=== PATIENT | female | born 1940 | race Caucasian/White ===

== ENCOUNTER → 2016-09-30 | Outpatient (CLI) | payer MEDICARE ==
[~2016-09-30] MED LIST: ACDPT PO; ACET325T38 PO; AMIT10TA6 PO; AMLO10TA82 PO; CARV25TA30 PO; CHOL10002 PO; CLOP75TA3 PO; CRAN450T4 PO; FEVE380C PO; FIBER; FURO40TA4 PO; LOSA100T8 PO; LOSA25TA2 PO; MTP50T PO; NITR0.4T7 SL; OMEG1CAP PO; SEVE0.8P PO; UBID10CA5 PO
[2016-09-30 09:22] LABS: BASOPHILS % (AUTO) 1 % (0-2); EOSINOPHILS # (AUTO) 0.6 10^3uL; EOSINOPHILS % (AUTO) 8 % (0-4); LYMPHOCYTES # (AUTO) 1.5 X10^3; MEAN CORPUSCULAR HEMOGLOBIN 30.4 PG (26.0-34.0); MEAN CORPUSCULAR VOLUME 96 FL (80-100); MEAN PLATELET VOLUME 9.4 FL (6.0-9.5); MONOCYTES # (AUTO) 0.9 X10^3; MONOCYTES % (AUTO) 13 % (3-11); NEUTROPHILS # (AUTO) 3.9 X10^3; NEUTROPHILS % (AUTO) 56 % (51-67); PLATELET COUNT 199 10^3uL (150-450)
[2016-09-30 09:25] LABS: MEAN CORPUSCULAR HGB CONC 31.6 g/dL (31.0-37.0)
[2016-09-30 09:56] LABS: ANION GAP 15.7 MEQ/L (3-15); PHOSPHORUS 5.5 mg/dL (2.4-4.9)
== END ==
LOC: LAB 09:06
PROVIDERS: ATTEND Internal Medicine Nephrology
DX: N18.5 Chronic kidney disease, stage 5 (principal)
CPT/HCPCS: 36415; 80069; 85025

== ENCOUNTER 2016-10-23 17:42 | Emergency (ER) | payer MEDICARE ==
[~2016-10-23] VITALS: Ht 162.6 cm; Wt 57.0 kg
[2016-10-23 18:51] LABS: MEAN CORPUSCULAR HGB CONC 32.9 g/dL (31.0-37.0); MEAN CORPUSCULAR VOLUME 97 FL (80-100); MEAN PLATELET VOLUME 10.6 FL (6.0-9.5); PLATELET COUNT 173 10^3uL (150-450); WHITE BLOOD COUNT 6.09 10^3uL (4.0-11.0)
[2016-10-23 19:04] LABS: MEAN CORPUSCULAR HEMOGLOBIN 31.8 PG (26.0-34.0)
--- NOTE | 2016-10-23 19:04 | NUR ---
Coban removed. Site continues to bleed slightly. Tegaderm in place. Coban reapplied.
[2016-10-23 19:10] LABS: BAND NEUTROPHILS % 2 % (0-6); SEGMENTED NEUTROPHILS % 53 % (51-67)
[2016-10-23 19:11] LABS: EOSINOPHILS % 7 % (0-4); LYMPHOCYTES # 1.5 #; MONOCYTES # 0.8 #; MONOCYTES % 13 % (3-11); RBC MORPH NORMAL (NORMAL); TOTAL CELLS COUNTED 100
[2016-10-23 19:53] VITALS: BP 183/68
== END 2016-10-23 19:40 | disposition home or self-care (01) ==
LOC: ED 17:44
DX: S51.812A Laceration without foreign body of left forearm, initial encounter (principal); W01.190A Fall on same level from slipping, tripping and stumbling with subsequent striking against furniture, initial encounter; Y93.89 Activity, other specified; Y92.003 Bedroom of unspecified non-institutional (private) residence as the place of occurrence of the external cause
CPT/HCPCS: 36415; 85025; 99282; 99283

== ENCOUNTER → 2016-10-29 | Outpatient (CLI) | payer MEDICARE ==
[2016-10-29 09:52] LABS: MEAN CORPUSCULAR HEMOGLOBIN 31.2 PG (26.0-34.0); MEAN PLATELET VOLUME 10.1 FL (6.0-9.5); WHITE BLOOD COUNT 7.64 10^3uL (4.0-11.0)
[2016-10-29 10:19] LABS: ALBUMIN 4.2 g/dL (3.4-5.0); ANION GAP 19.7 MEQ/L (3-15); PHOSPHORUS 5.7 mg/dL (2.4-4.9)
== END ==
LOC: LAB 09:38
PROVIDERS: ATTEND Internal Medicine
DX: M25.551 Pain in right hip (principal); N18.4 Chronic kidney disease, stage 4 (severe); I70.298 Other atherosclerosis of native arteries of extremities, other extremity
CPT/HCPCS: 36415; 80069; 82306; 83970; 85027

== ENCOUNTER 2016-10-30 20:39 | Emergency (ER) | payer MEDICARE ==
[~2016-10-30] VITALS: Ht 162.6 cm; Wt 57.2 kg
--- NOTE | 2016-10-30 22:19 | NUR ---
CHECKED IF NOSE IS BLEEDING. PT WITH NOSE CLAMP- PT DABBING SMALL AMOUNT OF BLOOD. MADE AWARE.
[2016-10-30] MEDS ORDERED: SILVER NITRATE APPLICATOR 1 EA TOP ONE ×2 (22:35→23:10)
--- NOTE | 2016-10-30 22:40 | NUR ---
RECHECKED BP= 181/74, 72. MADE AWARE.
--- NOTE | 2016-10-30 23:11 | NUR ---
Repeat silver nitrate ordered and applied by MD prior to dc home.
[2016-10-30 23:25] VITALS: BP 156/73
== END 2016-10-30 23:26 | disposition home or self-care (01) ==
LOC: ED 20:40
DX: R04.0 Epistaxis (principal)
CPT/HCPCS: 99283; A9270; 30901; 99282

== ENCOUNTER → 2016-12-04 | Outpatient (CLI) | payer MEDICARE ==
[2016-12-04 09:31] LABS: BASOPHILS % (AUTO) 1 % (0-2); EOSINOPHILS # (AUTO) 0.3 10^3uL; EOSINOPHILS % (AUTO) 6 % (0-4); LYMPHOCYTES # (AUTO) 1.2 X10^3; MEAN CORPUSCULAR HEMOGLOBIN 29.7 PG (26.0-34.0); MEAN CORPUSCULAR VOLUME 95 FL (80-100); MEAN PLATELET VOLUME 9.8 FL (6.0-9.5); MONOCYTES # (AUTO) 0.7 X10^3; MONOCYTES % (AUTO) 13 % (3-11); NEUTROPHILS % (AUTO) 58 % (51-67); PLATELET COUNT 238 10^3uL (150-450); WHITE BLOOD COUNT 5.29 10^3uL (4.0-11.0)
[2016-12-04 10:02] LABS: MEAN CORPUSCULAR HGB CONC 31.3 g/dL (31.0-37.0)
[2016-12-04 10:17] LABS: ALBUMIN 3.7 g/dL (3.4-5.0)
== END ==
LOC: LAB 09:16
PROVIDERS: ATTEND Internal Medicine Nephrology
DX: N18.5 Chronic kidney disease, stage 5 (principal)
CPT/HCPCS: 36415; 80069; 85025

== ENCOUNTER 2016-12-17 10:24 | Emergency (ER) | payer MEDICARE ==
[~2016-12-17] VITALS: Ht 162.6 cm; Wt 56.2 kg
[2016-12-17] MEDS ORDERED: ASPI-586 PO (10:41)
[2016-12-17 11:32] LABS: BASOPHILS % (AUTO) 1 % (0-2); EOSINOPHILS # (AUTO) 0.3 10^3uL; EOSINOPHILS % (AUTO) 6 % (0-4); LYMPHOCYTES # (AUTO) 1.1 X10^3; MEAN CORPUSCULAR HEMOGLOBIN 28.4 PG (26.0-34.0); MEAN CORPUSCULAR VOLUME 93 FL (80-100); MEAN PLATELET VOLUME 9.8 FL (6.0-9.5); MONOCYTES # (AUTO) 0.8 X10^3; MONOCYTES % (AUTO) 14 % (3-11); NEUTROPHILS # (AUTO) 3.2 X10^3; NEUTROPHILS % (AUTO) 59 % (51-67); PLATELET COUNT 197 10^3uL (150-450); WHITE BLOOD COUNT 5.42 10^3uL (4.0-11.0)
[2016-12-17 11:38] LABS: MEAN CORPUSCULAR HGB CONC 30.5 g/dL (31.0-37.0)
--- NOTE | 2016-12-17 11:47 | Diagnostic Imaging Report ---
CLINICAL INDICATION: Patient status post fall with contusion and laceration to back of head. EXAM: Axial CT scan of the brain performed without IV contrast. Sagittal and coronal reformatted images were created. COMPARISON: Head CT without IV contrast dated 01/08/2015. FINDINGS: There is no evidence of acute cerebral infarct, intracranial hemorrhage, or gross mass effect. Again seen focal and patchy areas of low-attenuation white matter changes in both cerebral hemispheres, likely representing chronic small-vessel ischemic disease. There is normal carranza-white matter distinction. The brain parenchymal volume appears appropriate for patient's age. There is no significant midline shift or herniation. There is dense atherosclerotic calcification involving the intradural left vertebral artery and bilateral cavernous carotid arteries. There is no evidence of hydrocephalus. The basal cisterns are unremarkable. There is a small area of extracranial soft tissue swelling in the right posterior aspect of the head. There is no skull fracture seen. Otherwise, the skull, extracranial soft tissue, and orbits are unremarkable. IMPRESSION: 1: There is no evidence of acute intracranial process or intracranial hemorrhage. 2: There is a small area of extracranial swelling in the right posterior aspect of the head. There is no skull fracture. 3: Age-related brain parenchymal changes. Dictated by: Dictated on workstation # [id number]
[2016-12-17] MEDS ORDERED: LIDOCAINE/EPINEPHRINE 1%-1:100,000 (XYLOCAINE) 20ML VIAL TOP ONE (11:55)
[2016-12-17 13:20] VITALS: BP 158/55
== END 2016-12-17 13:22 | disposition home or self-care (01) ==
LOC: ED 10:26
DX: S01.01XA Laceration without foreign body of scalp, initial encounter (principal); W01.198A Fall on same level from slipping, tripping and stumbling with subsequent striking against other object, initial encounter; Y92.009 Unspecified place in unspecified non-institutional (private) residence as the place of occurrence of the external cause
CPT/HCPCS: 12001; 36415; 70450; 85025; 99283

== ENCOUNTER 2016-12-17 13:11 | Outpatient (RCR) | payer MEDICARE ==
[~2016-12-17] VITALS: Ht 162.6 cm; Wt 54.9 kg
[~2016-12-17 13:11] MED LIST changes: +ASPI-586 PO
[2016-12-17] MEDS ORDERED: DARBEPOETIN ALFA SC ONE (13:30)
[2017-01-04] MEDS ORDERED: IRON SUCROSE 200 MG in NORMAL SALINE 150 ML IV ONE (10:10)
[2017-01-06] MEDS ORDERED: IRON SUCROSE 200 MG in NORMAL SALINE 150 ML IV ONE (10:15)
[2017-01-06] MEDS ORDERED: NS FLUSH 3 ML PRN IV (10:15)
[2017-01-06] MEDS: NS FLUSH 10 ML PRN IV (10:42)
[2017-01-08] MEDS ORDERED: IRON SUCROSE 200 MG in NORMAL SALINE 150 ML IV ONE (10:25)
[2017-01-08] MEDS: NS FLUSH 10 ML PRN IV (10:36)
[2017-01-11] MEDS ORDERED: IRON SUCROSE 200 MG in NORMAL SALINE 150 ML IV ONE (10:30)
[2017-01-11] MEDS: NS FLUSH 10 ML PRN IV (11:41)
[2017-01-13] MEDS ORDERED: DARBEPOETIN ALFA SC ONE (10:10)
[2017-01-13] MEDS ORDERED: IRON SUCROSE 200 MG in NORMAL SALINE 150 ML IV ONE (10:10)
[2017-01-13 10:40] VITALS: BP 152/59
== END 2017-02-10 18:22 | disposition home or self-care (01) ==
LOC: EUOP 01-04 09:53
PROVIDERS: ATTEND Internal Medicine Nephrology
DX: N18.5 Chronic kidney disease, stage 5 (principal); D63.8 Anemia in other chronic diseases classified elsewhere
CPT/HCPCS: 36415; 85014; 85018; 96365; 96372; J0881; J1756; J7050; 36000

== ENCOUNTER → 2016-12-28 | Outpatient (CLI) | payer MEDICARE ==
[2016-12-28 09:52] LABS: BASOPHILS % (AUTO) 1 % (0-2); EOSINOPHILS # (AUTO) 0.4 10^3uL; EOSINOPHILS % (AUTO) 6 % (0-4); LYMPHOCYTES # (AUTO) 1.3 X10^3; MEAN CORPUSCULAR HEMOGLOBIN 27.9 PG (26.0-34.0); MEAN CORPUSCULAR VOLUME 92 FL (80-100); MEAN PLATELET VOLUME 8.8 FL (6.0-9.5); MONOCYTES # (AUTO) 0.8 X10^3; MONOCYTES % (AUTO) 13 % (3-11); NEUTROPHILS # (AUTO) 3.6 X10^3; NEUTROPHILS % (AUTO) 59 % (51-67); PLATELET COUNT 275 10^3uL (150-450); WHITE BLOOD COUNT 6.05 10^3uL (4.0-11.0)
[2016-12-28 09:57] LABS: MEAN CORPUSCULAR HGB CONC 30.2 g/dL (31.0-37.0)
[2016-12-28 10:29] LABS: ALBUMIN 3.8 g/dL (3.4-5.0); ANION GAP 18.2 MEQ/L (3-15); CALCULATED IONIZED CALCIUM 4.6 mg/dL (3.8-4.6); TOTAL PROTEIN 6.1 g/dL (6.4-8.5)
[2016-12-28 17:56] LABS: IRON 16 ug/dL (50-170); UNBOUND IRON CONTENT 335 ug/dl (126-382)
== END ==
LOC: LAB 09:35
PROVIDERS: ATTEND Internal Medicine
DX: Z00.00 Encounter for general adult medical examination without abnormal findings (principal); G62.9 Polyneuropathy, unspecified; E04.9 Nontoxic goiter, unspecified; E78.4 Other hyperlipidemia; I10 Essential (primary) hypertension; R79.89 Other specified abnormal findings of blood chemistry; D64.89 Other specified anemias; N18.5 Chronic kidney disease, stage 5
CPT/HCPCS: 36415; 80053; 80061; 82306; 82728; 83540; 83550; 84439; 84443; 85025